=== PATIENT | female | born 1990 | race Two or more races ===

== ENCOUNTER → 2025-02-14 | Outpatient (BNVA) | payer BC, SELFPAY | END | disposition home or self-care (01) | PROVIDERS: PCP Nurse Practitioner Family; Referring Provider Nurse Practitioner Family; Visit Provider Nurse Practitioner Family | DX: Z02.1 Encounter for pre-employment examination (principal); J45.990 Exercise induced bronchospasm | CPT/HCPCS: 81001; 99204 ==